=== PATIENT | male | born 1940 | race Hispanic/Latino ===

== ENCOUNTER 2019-07-05 19:05 | Emergency (ER) | payer OTHER ==
[2019-07-05] MEDS ORDERED: NA CHLORIDE 0.9% 1,000 ML ONE (19:36)
[2019-07-05] MEDS ORDERED: ONDANSETRON 4 MG/2 ML VIAL ONE (19:36)
[2019-07-05] MEDS ORDERED: NA CHLORIDE 0.9% 2,000 ML ONE (19:48)
[2019-07-05 20:08] LABS: Absolute Lymphocytes (CBC) 2.6 K/uL (0.7-4.9); Basophils % 0.3 % (0-1.3); Hematocrit 48.6 % (39.6-49.0); Lymphocytes % 17.7 % (15.3-44.8); MPV 11.4 fL (7.6-11.3); RBC Red Blood Cell Count 5.06 M/uL (4.33-5.43)
[2019-07-05 20:17] LABS: Protime INR 1.17
[2019-07-05 20:30] LABS: Albumin 4.4 g/dL (3.4-5.0); Potassium 4.4 mmol/L (3.5-5.1); Protein, Total 9.4 g/dL (6.4-8.2); Troponin (Emerg Dept Use Only) 0.06 ng/mL (0.0-0.045)
[2019-07-05 20:50] LABS: Platelet Estimate ADEQ; Platelets, Giant FEW PRESENT; Urine White Blood Cell Casts OK
[2019-07-05 20:51] LABS: Blood Morphology Comment NOT SEEN (NOT SEEN)
--- NOTE | 2019-07-05 23:33 | EDPHYS ---
Physician Documentation [facility] Name: Timmy Clark Age: 79 yrs Sex: Male : 1940 Arrival Date: 07/05/2019 Time: 19:09 Bed 26 Private MD: ED Physician Karan Lara HPI: 07/05 19:41 This 79 yrs old Male presents to ER via Wheelchair with complaints of ps1 Nausea/Vomiting/Diarrhea, Ear Pain. 19:41 patient presents somnolent, listless, from triage. Family member states that his ps1 symptoms started today after working outside with lawnmower. States that he had multiple episodes of N,V,D. He was hypotensive in triage. 70/30. HR 100. BS 190. Hx of CHF, HTN. HLD. Patient states that he has non-specific pain in chest, abdomen, head. Does not localize in any area however. . Historical: - Allergies: 19:40 No Known Allergies; ca1 - Home Meds: 19:40 lisinopril 10 mg Oral tab 1 tab once daily [Active]; aspirin 81 mg Oral chew 1 tab once ca1 daily [Active]; atorvastatin 80 mg oral tab 1 tab once daily [Active]; carvedilol 6.25 mg oral tab 1 tab 2 times per day [Active]; - PMHx: 19:40 Hypertension; Hyperlipidemia; ca1 - PSHx: 19:40 Unable to obtain; ca1 - Immunization history:: Adult Immunizations unknown. - Social history:: Smoking status: unknown. - Ebola Screening: : No symptoms or risks identified at this time. ROS: 19:41 Unable to obtain ROS due to altered mental status, patient is able to answer specific ps1 single answer questions but not able to elaborate to provide adequate ROS and history. . Exam: 19:41 Head/Face: Normocephalic, atraumatic. Eyes: Pupils equal round and reactive to light, ps1 extra-ocular motions intact. Lids and lashes normal. Conjunctiva and sclera are non-icteric and not injected. ENT: Nares patent. No nasal discharge, no septal abnormalities noted. Tympanic membranes are normal and external auditory canals are clear. Oropharynx with no redness, swelling, or masses, exudates, or evidence of obstruction, uvula midline. Mucous membranes moist. Respiratory: Lungs have equal breath sounds bilaterally, clear to auscultation and percussion. No rales, rhonchi or wheezes noted. No increased work of breathing, no retractions or nasal flaring. Back: No spinal tenderness. No costovertebral tenderness. Full range of motion. Skin: Warm, dry with normal turgor. Normal color with no rashes, no lesions, and no evidence of cellulitis. 19:41 Constitutional: The patient appears alert, listless, obviously ill. 19:41 Cardiovascular: Rate: tachycardic, Rhythm: regular, Pulses: no pulse deficits are appreciated, Edema: is not appreciated, JVD: is not appreciated. 19:41 Respiratory: 19:41 Abdomen/GI: Inspection: abdomen appears normal, Bowel sounds: normal, Palpation: organomegaly is appreciated, hepatomegaly. 19:41 Neuro: Orientation: unable to test, listless, Cerebellar function: is grossly normal, Motor: is normal, Sensation: is normal. Vital Signs: 19:40 BP 74 / 49; Pulse 80; Resp 16 S; Temp 96.1(TE); Pulse Ox 98% on R/A; Weight 108.86 kg ca1 (R); Height 5 ft. 3 in. (160.02 cm) (R); Pain 10/10; 20:00 BP 56 / 47; Pulse 64; Resp 19; Pulse Ox 100% on R/A; rv 20:15 BP 60 / 44; Pulse 64; Resp 13; Pulse Ox 99% on R/A; rv 20:30 BP 79 / 48; Pulse 63; Resp 16; Pulse Ox 99% on R/A; rv 20:45 BP 95 / 54; Pulse 66; Resp 17 S; Pulse Ox 100% on R/A; ca1 21:29 BP 90 / 56; Pulse 74; Resp 20 S; Pulse Ox 98% on R/A; ca1 22:00 BP 89 / 54; Pulse 74; Resp 17; Pulse Ox 97% on R/A; rv 22:30 BP 85 / 54; Pulse 74; Resp 17; Pulse Ox 99% on R/A; rv 23:00 BP 89 / 61; Pulse 75; Resp 18; Pulse Ox 97% on R/A; rv 23:30 BP 97 / 56; Pulse 77; Resp 14; Pulse Ox 98% on R/A; rv 10/04 00:00 BP 97 / 61; Pulse 78; Resp 15; Pulse Ox 98% on R/A; rv 00:30 BP 99 / 58; Pulse 78; Resp 16; Pulse Ox 99% on R/A; rv 01:00 BP 106 / 61; Pulse 82; Resp 15; Pulse Ox 99% on R/A; rv 01:30 BP 87 / 66; Pulse 100; Resp 16; Pulse Ox 99% on R/A; rv 02:14 BP 91 / 49; Pulse 89; Resp 16; Pulse Ox 96% on R/A; rv 03:09 BP 100 / 61; Pulse 92; Resp 20; Pulse Ox 96% on R/A; fc 07/05 19:40 Body Mass Index 42.51 (108.86 kg, 160.02 cm) ca1 MDM: 07/05 19:54 Patient medically screened. ps1 07/05 19:41 Order name: Blood Culture Adult (2) ps1 07/05 19:41 Order name: CBC with Diff; Complete Time: 21:30 ps1 07/05 19:41 Order name: Lactate; Complete Time: 20:48 ps1 07/05 19:41 Order name: Procalcitonin; Complete Time: 21:30 ps1 07/05 19:41 Order name: Protime (+inr); Complete Time: 20:48 ps1 07/05 19:41 Order name: Troponin (emerg Dept Use Only); Complete Time: 20:48 ps1 07/05 19:41 Order name: CMP; Complete Time: 20:48 ps1 07/05 19:47 Order name: AMMONIA; Complete Time: 20:48 07/05 20:50 Order name: CBC Smear Scan; Complete Time: 21:30 EDMS 07/05 23:21 Order name: CK; Complete Time: 01:25 ps1 07/06 00:05 Order name: Lactate Sepsis 2 HR Follow-up; Complete Time: 01:25 EDMS 07/05 19:41 Order name: Chest Single View XRAY ps1 07/05 19:41 Order name: Accucheck; Complete Time: 20:13 ps1 07/05 19:41 Order name: Cardiac monitoring; Complete Time: 20:13 ps1 07/05 19:41 Order name: EKG - Nurse/Tech; Complete Time: 20:38 ps1 07/05 19:41 Order name: IV Saline Lock - Large Bore; Complete Time: 20:13 ps1 07/05 19:41 Order name: Labs collected and sent; Complete Time: 20:13 ps1 07/05 20:52 Order name: Abdomen EDMS 07/06 01:50 Order name: Urinalysis W/Microscopic; Complete Time: 02:39 EDMS 07/06 02:31 Order name: Urine Culture EDHI 07/05 19:41 Order name: O2 Per Protocol; Complete Time: 20:13 ps1 07/05 19:41 Order name: O2 Sat Monitoring; Complete Time: 20:13 ps1 07/05 19:41 Order name: Urine Dipstick-Ancillary (obtain specimen); Complete Time: 02:51 ps1 Administered Medications: 19:45 Drug: NS 0.9% (30 ml/kg) 30 ml/kg Route: IV; Rate: bolus; Site: right antecubital; ca1 07/06 02:16 Follow up: IV Status: Completed infusion; IV Intake: 3000ml rv 01:30 Drug: NS 0.9% 1000 ml Route: IV; Rate: 1 bolus; Site: right antecubital; rv 02:55 Follow up: Response: No adverse reaction; No change in condition; IV Status: Completed fc infusion; IV Intake: 1000ml 02:00 Drug: Zofran 2 mg Route: IVP; Site: right antecubital; rv 03:11 Follow up: Response: No adverse reaction; Nausea is decreased fc 02:52 CANCELLED (Physician Discretion): Rocephin - (cefTRIAXone) 1 grams IVPB once over 30 fc mins; (mix in 50 mL NS) 02:55 Drug: Rocephin 1 grams Route: IV; Rate: bolus; Site: right antecubital; fc 03:10 Follow up: Response: No adverse reaction; Medication administered at discharge.; IV fc Status: Completed infusion; IV Intake: 10ml 03:09 Drug: NS 0.9% 1000 ml Route: IV; Rate: 150 ml/hr; Site: right antecubital; fc 03:11 Follow up: IV Status: Infusion continued upon transfer; IV Intake: 15ml fc 03:12 Follow up: Response: No adverse reaction; Medication administered at discharge. fc Disposition: 07/05/19 23:32 Transfer ordered to [facility]. Diagnosis are Acute renal failure, Dehydration, Lactic acidosis, hypotension. - Reason for transfer: Higher level of care. - Accepting physician is Vito. - Condition is Fair. - Problem is new. - Symptoms are unchanged. Signatures: Dispatcher [employer] EDSobia Olivares, RN RN fc Karan Lara MD MD ps1 Ra Thomas, RN RN rv Mandi Ball RN RN ca1 Corrections: (The following items were deleted from the chart) 07/05 20:52 19:53 Abdomen Pelvis W Con+CT.RAD.BRZ ordered. EDMS EDMS 23:51 23:21 LACTATE+C.LAB.BRZ ordered. EDMS EDMS 07/06 01:49 01:38 URINALYSIS+U.LAB.BRZ ordered. EDMS EDMS 01:50 07/05 19:41 UA MICROSCOPIC+U.LAB.BRZ ordered. EDMS EDMS 07/06 02:52 02:39 Rocephin - (cefTRIAXone) 1 grams IVPB once over 30 mins; (mix in 50 mL NS) fc ordered. ps1 03:13 07/05 23:32 07/05/2019 23:32 Transfer ordered to [facility]. Diagnosis is Acute renal failure; Dehydration; Lactic acidosis; hypotension. Reason for transfer: Higher level of care. Accepting physician is Vito. Condition is Fair. Problem is new. Symptoms are unchanged. ps1
--- NOTE | 2019-07-05 23:33 | ER ---
Nurse's Notes [facility] Name: Timmy Clark Age: 79 yrs Sex: Male : 1940 Arrival Date: 07/05/2019 Time: 19:09 Bed 26 Private MD: Diagnosis: Acute renal failure;Dehydration;Lactic acidosis;hypotension Presentation: 07/05 19:37 Presenting complaint: daughter states pt has had vomiting and diarrhea all day states ca1 he is hurting all over and is weak. Transition of care: patient was not received from another setting of care. Onset of symptoms was July 05, 2019. Risk Assessment: Do you want to hurt yourself or someone else? Patient reports no desire to harm self or others. Initial Sepsis Screen: Does the patient meet any 2 criteria? Systolic BP < 90 mmHg. Altered Mental Status. Does the patient have a suspected source of infection? Yes: Acute abdominal pain If YES to both, name of provider notified: Karan Lara MD. Care prior to arrival: None. 19:37 Method Of Arrival: Wheelchair ca1 19:37 Acuity: RAUL 1 ca1 Triage Assessment: 20:30 General: Appears ill, Behavior is drowsy, quiet. rv 20:30 Pain: Denies pain. EENT: No signs and/or symptoms were reported regarding the EENT rv system. Neuro: Level of Consciousness is lethargic, Oriented to person, place, time, situation. Cardiovascular: Patient's skin is warm and dry. Respiratory: Airway is patent. GI: Reports diarrhea, nausea, vomiting. : No signs and/or symptoms were reported regarding the genitourinary system. Derm: Skin is intact. Musculoskeletal: Parent/caregiver report the patient having weakness in GENERAL. Historical: - Allergies: 19:40 No Known Allergies; ca1 - Home Meds: 19:40 lisinopril 10 mg Oral tab 1 tab once daily [Active]; aspirin 81 mg Oral chew 1 tab once ca1 daily [Active]; atorvastatin 80 mg oral tab 1 tab once daily [Active]; carvedilol 6.25 mg oral tab 1 tab 2 times per day [Active]; - PMHx: 19:40 Hypertension; Hyperlipidemia; ca1 - PSHx: 19:40 Unable to obtain; ca1 - Immunization history:: Adult Immunizations unknown. - Social history:: Smoking status: unknown. - Ebola Screening: : No symptoms or risks identified at this time. Screenin:45 Abuse screen: Denies threats or abuse. Denies injuries from another. Nutritional ca1 screening: No deficits noted. Tuberculosis screening: No symptoms or risk factors identified. Fall Risk IV access (20 points). Assessment: 20:30 General: Appears ill, Behavior is drowsy. rv 20:30 Pain: Denies pain. Neuro: Level of Consciousness is lethargic, Oriented to person, rv place, time, situation. Cardiovascular: Patient's skin is warm and dry. Respiratory: Airway is patent. GI: Reports diarrhea, nausea, vomiting. GI: Abdomen is round distended. : No signs and/or symptoms were reported regarding the genitourinary system. EENT: No signs and/or symptoms were reported regarding the EENT system. Derm: Skin is intact. Musculoskeletal: Reports weakness in GENERAL. 07/06 00:00 Reassessment: Patient appears in no apparent distress at this time. Patient and/or rv family updated on plan of care and expected duration. Pain level reassessed. Patient is alert, oriented x 3, equal unlabored respirations, skin warm/dry/pink. PATIENT HAD BOWEL MOVEMENT OF LOOSE STOOL. DIAPER CHANGING DONE. 01:00 Reassessment: PATIENT APPEARS TO BE MORE STABLE NOW. ABLE TO TALK AND MORE ALERT THAN rv EARLIER ASSESSMENT. ADVISED TO BE ON STRICT BED REST FOR NOW. 02:17 Reassessment: PATIENT WAS ADMINISTERED THREE LITERS OF NS INTRAVENOUSLY. DR LARA rv UPDATED ON THE VITAL SIGNS. POSITIONED OT [place], AND KEPT ON COMPLETE BED REST. BLOOD PRESSURE RECOVERED AFTER HYDRATION. PATIENT AND FAMILY UPDATED ON THE STATUS AND PLAN OF CARE. THE DAUGHTER INITIALLY WAS RELUCTANT TO GET TRANSFERRED. DR LARA AND GLENNY TALKED TO THE PATIENT AND FAMILY AT BEDSIDE, FAMILY AND PATIENT AGREED WITH THE PLAN. AWAITING TRANSPORTATION TO [facility]. 03:09 Reassessment: EMS here to take pt. Pt incont of liquid stool. Was cleaned and dry fc diaper put on pt. Dr Lara gave report to EMS. Vital Signs: 07/05 19:40 BP 74 / 49; Pulse 80; Resp 16 S; Temp 96.1(TE); Pulse Ox 98% on R/A; Weight 108.86 kg ca1 (R); Height 5 ft. 3 in. (160.02 cm) (R); Pain 10/10; 20:00 BP 56 / 47; Pulse 64; Resp 19; Pulse Ox 100% on R/A; rv 20:15 BP 60 / 44; Pulse 64; Resp 13; Pulse Ox 99% on R/A; rv 20:30 BP 79 / 48; Pulse 63; Resp 16; Pulse Ox 99% on R/A; rv 20:45 BP 95 / 54; Pulse 66; Resp 17 S; Pulse Ox 100% on R/A; ca1 21:29 BP 90 / 56; Pulse 74; Resp 20 S; Pulse Ox 98% on R/A; ca1 22:00 BP 89 / 54; Pulse 74; Resp 17; Pulse Ox 97% on R/A; rv 22:30 BP 85 / 54; Pulse 74; Resp 17; Pulse Ox 99% on R/A; rv 23:00 BP 89 / 61; Pulse 75; Resp 18; Pulse Ox 97% on R/A; rv 23:30 BP 97 / 56; Pulse 77; Resp 14; Pulse Ox 98% on R/A; rv 04 00:00 BP 97 / 61; Pulse 78; Resp 15; Pulse Ox 98% on R/A; rv 00:30 BP 99 / 58; Pulse 78; Resp 16; Pulse Ox 99% on R/A; rv 01:00 BP 106 / 61; Pulse 82; Resp 15; Pulse Ox 99% on R/A; rv 01:30 BP 87 / 66; Pulse 100; Resp 16; Pulse Ox 99% on R/A; rv 02:14 BP 91 / 49; Pulse 89; Resp 16; Pulse Ox 96% on R/A; rv 03:09 BP 100 / 61; Pulse 92; Resp 20; Pulse Ox 96% on R/A; fc 07/05 19:40 Body Mass Index 42.51 (108.86 kg, 160.02 cm) ca1 ED Course: 07/05 19:09 Patient arrived in ED. cf2 19:34 Ra Thomas RN is Primary Nurse. rv 19:34 Karan Lara MD is Attending Physician. ps1 19:38 Triage completed. ca1 19:40 Arm band placed on Patient placed in a hallway bed, on a stretcher, on media monitor, ca1 on pulse oximetry. Family accompanied patient. 19:45 Patient has correct armband on for positive identification. Placed in gown. Bed in low ca1 position. Call light in reach. Side rails up X2. radiation monitor on. Pulse ox on. NIBP on. Warm blanket given. 19:45 No provider procedures requiring assistance completed. Initial lab(s) drawn, by me, ca1 sent to lab. First set of blood cultures drawn by me. Inserted saline lock: 22 gauge in right antecubital area, using aseptic technique. Blood collected. 20:00 Straight cath inserted, using sterile technique, 16 Fr. Returned no urine return. jp3 resistence was met at prostate. Silverio was removed and sterile technique started over for a smaller silverio size.. Patient tolerated well. 20:05 Silverio cath inserted, using sterile technique, 14 Fr., by me, balloon inflated, to ca1 gravity drainage, returned none. Notified provider. Patient tolerated well. 20:10 Inserted saline lock: 22 gauge in left hand, using aseptic technique. ca1 20:10 Second set of blood cultures drawn. ca1 21:12 Abdomen In Process Unspecified. EDMS 21:21 Chest Single View XRAY In Process Unspecified. EDMS 07/06 03:13 Patient transferred, IV remains in place. fc Administered Medications: 07/05 19:45 Drug: NS 0.9% (30 ml/kg) 30 ml/kg Route: IV; Rate: bolus; Site: right antecubital; ca1 07/06 02:16 Follow up: IV Status: Completed infusion; IV Intake: 3000ml rv 01:30 Drug: NS 0.9% 1000 ml Route: IV; Rate: 1 bolus; Site: right antecubital; rv 02:55 Follow up: Response: No adverse reaction; No change in condition; IV Status: Completed fc infusion; IV Intake: 1000ml 02:00 Drug: Zofran 2 mg Route: IVP; Site: right antecubital; rv 03:11 Follow up: Response: No adverse reaction; Nausea is decreased fc 02:52 CANCELLED (Physician Discretion): Rocephin - (cefTRIAXone) 1 grams IVPB once over 30 fc mins; (mix in 50 mL NS) 02:55 Drug: Rocephin 1 grams Route: IV; Rate: bolus; Site: right antecubital; fc 03:10 Follow up: Response: No adverse reaction; Medication administered at discharge.; IV fc Status: Completed infusion; IV Intake: 10ml 03:09 Drug: NS 0.9% 1000 ml Route: IV; Rate: 150 ml/hr; Site: right antecubital; fc 03:11 Follow up: IV Status: Infusion continued upon transfer; IV Intake: 15ml fc 03:12 Follow up: Response: No adverse reaction; Medication administered at discharge. fc Intake: 02:16 IV: 3000ml; Total: 3000ml. rv 02:55 IV: 1000ml; Total: 4000ml. fc 03:10 IV: 10ml; Total: 4010ml. fc 03:11 IV: 15ml; Total: 4025ml. fc Outcome: 07/05 23:32 ER care complete, transfer ordered by . [facility] 07/06 03:12 Transferred by [facility] to [facility], Transfer form completed. fc X-rays sent w/ patient. Condition: stable Discharge instructions given to patient, family, Instructed on the need for transfer, Demonstrated understanding of instructions. 03:13 Patient left the ED. fc Addendum: 07/11/2019 12:35 Addendum: Culture Results: Positive urine culture. Phone call Attempt #1 Called [facility] who reported that patient had been discharged home. Signatures: Dispatcher [employer] EDMS Sobia Hunter RN RN Danuta Bacon RN RN ss Singer, Phillip, MD MD ps1 Ra Thomas RN RN rv Jesús Eric jp3 Mandi Ball RN RN ca1 Vaughn Kenny cf2 Corrections: (The following items were deleted from the chart) 07/05 19:42 19:37 Acuity: RAUL 2 ca1 ca1 21:48 20:45 BP 95 / 54; Pulse 66bpm; Resp 17bpm; Pulse Ox 100% RA; ca1 ca1 21:48 21:29 BP 90 / 56; Pulse 74bpm; Resp 20bpm; Pulse Ox 98% RA; ca1 ca1
[2019-07-06] MEDS ORDERED: NA CHLORIDE 0.9% 1,000 ML ONE ×2 (01:30→03:02)
[2019-07-06] MEDS ORDERED: ONDANSETRON 4 MG/2 ML VIAL ONE (01:54)
[2019-07-06 02:02] LABS: Urine Appearance TURBID; Urine Blood 3+ (NEG); Urine Color RED; Urine Glucose TRACE (NEG); Urine Protein 3+ (NEG); Urine Specific Gravity 1.025 (1.005-1.030)
[2019-07-06 02:17] LABS: Urine Bilirubin NEGATIVE (NEG)
[2019-07-06 02:30] LABS: Urine Bacteria >50 /HPF (NONE SEEN); Urine Culture Reflex Order REFLEXED; Urine RBC TNTC /HPF (NONE SEEN)
[2019-07-06] MEDS ORDERED: CEFTRIAXONE/SWI 1gm 1 GM/10 ML SYR ONE (02:51)
[2019-07-06 03:22] VITALS: TEMP 96.1
[2019-07-06 03:40] VITALS: O2SAT 96
[2019-07-06 03:41] VITALS: BP 100/61
--- NOTE | 2019-07-07 04:44 | EKG ---
Test Date: 2019-07-05 Test Time: 20:40:42 Caddie Supervisor: RV MEASUREMENT RESULTS: Intervals: Rate: 63 WI: 124 QRSD: 82 QT: 448 QTc: 458 [place]: P: 40 WI: 124 QRS: 16 T: 37 INTERPRETIVE STATEMENTS: Normal sinus rhythm Inferior infarct, age undetermined Abnormal ECG No previous ECG available for comparison Electronically Signed On 07-07-19 04:44:34 CDT by Luke Chavez
--- NOTE | 2019-07-07 15:06 | RAD REPORT ---
EXAM DESCRIPTION: Emelyn Single View07/06/2019 7:04 pm CLINICAL HISTORY: Sepsis and hypertension COMPARISON: 2011 FINDINGS: The lungs appear clear of acute infiltrate. The heart is normal size IMPRESSION: No acute abnormalities displayed
--- NOTE | 2019-07-09 15:08 | RAD REPORT ---
EXAM DESCRIPTION: CT ABDOMEN AND PELVIS W/O CONTRAST CLINICAL HISTORY: Abdominal pain. COMPARISON: None. TECHNIQUE: Axial 5 mm thick images of the abdomen and pelvis were obtained without oral or IV contrast. This exam was performed according to our departmental dose-optimization program, which includes automated exposure control, adjustment of the mA and/or kV according to patient size and/or use of iterative reconstruction technique. FINDINGS: No acute finding in the lung bases. The liver, spleen, pancreas, biliary tree, adrenal glands and kidneys show no suspicious findings. The gallbladder is absent. No hydronephrosis of either kidney. Isodense masses and pyelonephritis are not excluded on non-contrast imaging. The urinary bladder is fully contracted around a Painter catheter. No dilated bowel loops or bowel wall thickening. No free air, free fluid or inflammatory stranding. No mass or bulky lymphadenopathy. Bilateral fat only inguinal hernias are present. Spine degenerative changes are present. No acute bone process is seen. IMPRESSION: 1. Non-contrast Ct abdomen and pelvis imaging showing no emergent finding. A non-specific enteritis is still possible. 2. Isodense masses and pyelonephritis are not excluded on a non-contrast study. Non acute findings detailed in the body of the report. Due to [email or web address] technical issues signed final reports were delayed. Verbal reports were telephoned to the referring clinician at the time of the study and/or preliminary written reports were generated as soon as possible.
== END 2019-07-06 03:13 | disposition short-term general hospital (02) ==
LOC: ER 19:05
DX: N17.9 Acute kidney failure, unspecified (principal); E86.0 Dehydration; E87.2 Acidosis; I95.9 Hypotension, unspecified; I10 Essential (primary) hypertension; E78.5 Hyperlipidemia, unspecified; Z79.82 Long term (current) use of aspirin
CPT/HCPCS: 96361 ×2; 93005; 87040 ×2; 87088; 85025; 81001; 87086; 36415; 82140; 82550; 85610; 82962; 83605 ×2; 87077; 87186; 84484; 80053; 84145; 74176; 71045; 51702 ×2; 96375; 96374; 99291; 99292; J0696; J7030 ×4; J2405 ×2; 96365; 96366

== ENCOUNTER 2022-03-29 21:40 | Emergency (ER) | payer OTHER ==
--- OUTSIDE RECORDS SUMMARY | 2022-03-29 21:46 | XMS REPORT | Continuity of Care Document ---
:1940 Author Organization [facility] t Address [address] [place] [address] Dr. Marino [address] [place] [id number] Care Team Providers Name Role Phone SIMA AMBROSE Attending Clinician Unavailable SIMA AMBROSE Admitting Clinician Unavailable Problems This patient has no known problems. Allergies, Adverse Reactions, Alerts This patient has no known allergies or adverse reactions. Medications This patient has no known medications. Procedures This patient has no known procedures. Results Test Description Test Time Test Comments Results Result Comments Source IMMUNOFIXATION ELECTROPHORESIS (VAL) 2019-07-13 15:55:00 Test Item Value Reference Range Interpretation Comme nts IMMUNOGLOBULIN G (IGG) (BEAKER) (test 1368 mg/dL 540-1,822 code = 427) IMMUNOGLOBULIN A (IGA) (BEAKER) (test 85 mg/dL 63-484 code = 639) IMMUNOGLOBULIN M (IGM) (BEAKER) (test 41 mg/dL 22-293 code = 638) SERUM VAL ID (BEAKER) (test code = Serum VAL demonstrates two 1814) distinct IgG kappa monoclonal bands. [id number] (BEAKER) (test Margie Nicholson MD (electronic code = 2597) signature) PROTEIN ELECTROPHORESIS, [id number] 17:30:00 Test Item Value Reference Range Interpretation Comments ALBUMIN FRACTION 2.7 g/dL 3.5-5.5 L (BEAKER) (test code = 405) ALPHA 1 FRACTION 0.2 g/dL 0.2-0.4 (BEAKER) (test code = 389) ALPHA 2 FRACTION 0.6 g/dL 0.5-0.9 (BEAKER) (test code = 390) BETA FRACTION 0.5 g/dL 0.6-1.1 L (BEAKER) (test code = 392) GAMMA GLOBULIN 1.2 g/dL 0.7-1.7 FRACTION (BEAKER) (test code = 391) INTERPRETATION-119 There are 2 bands of (BEAKER) (test code = uncertain significance 2618) in the gamma region. Refer to VAL. [id number] [place] MD (BEAKER) (test code = (electronic signature) 2618) PROTEIN TOTAL SERUM, 5.1 gm/dL 6.0-8.3 L SPEP (BEAKER) (test code = 2230) OVA AND PARASITE [id number] 11:33:00 Test Item Value Reference Range Interpretation Comments DIRECT SMEAR - O\T\P No ova or parasites No ova or parasites (BEAKER) (test code = seen seen 196) CONCENTRATE SMEAR - No ova or parasites No ova or parasites O\T\P (BEAKER) (test seen seen code = 247) TRICHROME SMEAR - No ova or parasites No ova or parasites O\T\P (BEAKER) (test seen seen code = 248) BLOOD [id number] 08:00:00 Test Item Value Reference Range Interpretation Comments CULTURE (BEAKER) (test No growth in 5 days code = 1095) BLOOD [id number] 08:00:00 Test Item Value Reference Range Interpretation Comments CULTURE (BEAKER) (test No growth in 5 days code = 1095) BASIC METABOLIC [id number] 16:30:00 Test Item Value Reference Range Interpretation Comments SODIUM (BEAKER) 140 meq/L 136-145 (test code = 381) POTASSIUM (BEAKER) 3.9 meq/L 3.5-5.1 (test code = 379) CHLORIDE (BEAKER) 109 meq/L 98-107 H (test code = 382) CO2 (BEAKER) (test 28 meq/L 22-29 code = 355) BLOOD UREA NITROGEN 25 mg/dL 7-21 H (BEAKER) (test code = 354) CREATININE (BEAKER) 1.17 mg/dL 0.57-1.25 (test code = 358) GLUCOSE RANDOM 109 mg/dL 70-105 H (BEAKER) (test code = 652) CALCIUM (BEAKER) 8.3 mg/dL 8.4-10.2 L (test code = 697) EGFR (BEAKER) (test 60 mL/min/1.73 ESTIMA LUIS GFR IS code = 1092) sq m NOT ACCURATE CREATININE CLEARANCE IN PREDICTING GLOMERULAR FILTRATION RATE . ESTIMATED GFR I S NOT APPLICABLE FOR DIALYSIS PATIEN TS. IRON, TIBC, % SAT. (WITHOUT FERRITIN)2019-07-08 06:42:00 Test Item Value Reference Range Interpretation Comments IRON (BEAKER) (test code = 547) 64.0 ug/dL 40.0-160.0 TOTAL IRON BINDING CAPACITY 175 ug/dL 250-450 L (BEAKER) (test code = 769) IRON % SATURATION (2) (BEAKER) 37 % 20-55 (test code = 2590) [id number] 06:36:00 Test Item Value Reference Range Interpretation Comments PHOSPHORUS (BEAKER) (test code = 2.0 mg/dL 2.3-4.7 L 604) [id number] 06:36:00 Test Item Value Reference Range Interpretation Comments MAGNESIUM (BEAKER) (test code = 1.9 mg/dL 1.6-2.6 627) BASIC METABOLIC [id number] 06:36:00 Test Item Value Reference Range Interpretation Comments SODIUM (BEAKER) 143 meq/L 136-145 (test code = 381) POTASSIUM (BEAKER) 3.6 meq/L 3.5-5.1 (test code = 379) CHLORIDE (BEAKER) 111 meq/L 98-107 H (test code = 382) CO2 (BEAKER) (test 27 meq/L 22-29 code = 355) BLOOD UREA NITROGEN 33 mg/dL 7-21 H (BEAKER) (test code = 354) CREATININE (BEAKER) 1.40 mg/dL 0.57-1.25 H (test code = 358) GLUCOSE RANDOM 104 mg/dL 70-105 (BEAKER) (test code = 652) CALCIUM (BEAKER) 8.4 mg/dL 8.4-10.2 (test code = 697) EGFR (BEAKER) (test 49 mL/min/1.73 ESTIMA LUIS GFR IS code = 1092) sq m NOT ACCURATE CREATININE CLEARANCE IN PREDICTING GLOMERULAR FILTRATION RATE . ESTIMATED GFR I S NOT APPLICABLE FOR DIALYSIS PATIEN TS. CREATINE KINASE (CK)2019-07-08 06:36:00 Test Item Value Reference Range Interpretation Comments CREATINE KINASE TOTAL (BEAKER) (test 264 U/L 29-200 H code = 380) [id number] 06:33:00 Test Item Value Reference Range Interpretation Comments FERRITIN (BEAKER) (test code = 361) 167 ng/mL 5-275 CBC W/PLT COUNT & AUTO [id number] 05:51:00 Test Item Value Reference Range Interpretation Comments WHITE BLOOD CELL COUNT (BEAKER) 6.2 K/ L 3.5-10.5 (test code = 775) RED BLOOD CELL COUNT (BEAKER) 3.54 M/ L 4.63-6.08 L (test code = 761) HEMOGLOBIN (BEAKER) (test code = 11.2 GM/DL 13.7-17.5 L 410) HEMATOCRIT (BEAKER) (test code = 34.0 % 40.1-51.0 L 411) MEAN CORPUSCULAR VOLUME (BEAKER) 96.0 fL 79.0-92.2 H (test code = 753) MEAN CORPUSCULAR HEMOGLOBIN 31.6 pg 25.7-32.2 (BEAKER) (test code = 751) MEAN CORPUSCULAR HEMOGLOBIN CONC 32.9 GM/DL 32.3-36.5 (BEAKER) (test code = 752) RED CELL DISTRIBUTION WIDTH 14.5 % 11.6-14.4 H (BEAKER) (test code = 412) PLATELET COUNT (BEAKER) (test code 91 K/CU MM 150-450 L = 756) MEAN PLATELET VOLUME (BEAKER) 12.9 fL 9.4-12.4 H (test code = 754) NUCLEATED RED BLOOD CELLS (BEAKER) 0 /100 WBC 0-0 (test code = 413) NEUTROPHILS RELATIVE PERCENT 61 % (BEAKER) (test code = 429) LYMPHOCYTES RELATIVE PERCENT 24 % (BEAKER) (test code = 430) MONOCYTES RELATIVE PERCENT 11 % (BEAKER) (test code = 431) EOSINOPHILS RELATIVE PERCENT 3 % (BEAKER) (test code = 432) BASOPHILS RELATIVE PERCENT 0 % (BEAKER) (test code = 437) NEUTROPHILS ABSOLUTE COUNT 3.79 K/ L 1.78-5.38 (BEAKER) (test code = 670) LYMPHOCYTES ABSOLUTE COUNT 1.49 K/ L 1.32-3.57 (BEAKER) (test code = 414) MONOCYTES ABSOLUTE COUNT (BEAKER) 0.66 K/ L 0.30-0.82 (test code = 415) EOSINOPHILS ABSOLUTE COUNT 0.21 K/ L 0.04-0.54 (BEAKER) (test code = 416) BASOPHILS ABSOLUTE COUNT (BEAKER) 0.02 K/ L 0.01-0.08 (test code = 417) IMMATURE GRANULOCYTES-RELATIVE 0 % 0-1 PERCENT (BEAKER) (test code = 2801) BASIC METABOLIC [id number] 17:58:00 Test Item Value Reference Range Interpretation Comments SODIUM (BEAKER) 145 meq/L 136-145 (test code = 381) POTASSIUM (BEAKER) 3.7 meq/L 3.5-5.1 (test code = 379) CHLORIDE (BEAKER) 111 meq/L 98-107 H (test code = 382) CO2 (BEAKER) (test 27 meq/L 22-29 code = 355) BLOOD UREA NITROGEN 43 mg/dL 7-21 H (BEAKER) (test code = 354) CREATININE (BEAKER) 2.19 mg/dL 0.57-1.25 H (test code = 358) GLUCOSE RANDOM 101 mg/dL 70-105 (BEAKER) (test code = 652) CALCIUM (BEAKER) 8.4 mg/dL 8.4-10.2 (test code = 697) EGFR (BEAKER) (test 29 mL/min/1.73 ESTIMA LUIS GFR IS code = 1092) sq m NOT ACCURATE CREATININE CLEARANCE IN PREDICTING GLOMERULAR FILTRATION RATE . ESTIMATED GFR I S NOT APPLICABLE FOR DIALYSIS PATIEN TS. VITAMIN B12 AND [id number] 08:30:00 Test Item Value Reference Range Interpretation Comments VITAMIN B12 (BEAKER) (test code = 198 pg/mL 213-816 L 774) FOLATE (BEAKER) (test code = 362) 7.1 ng/mL >=7.0 TROPONIN [id number] 08:13:00 Test Item Value Reference Range Interpretation Comments TROPONIN I (BEAKER) (test code = 0.22 ng/mL 0.00-0.03 HH 397) Troponin I (TnI) levels must be interpreted in the context of the presenting symptoms and the clinical findings. Elevated TnI levels indicate myocardial damage, but are not specific for ischemic heart disease. Elevated TnI levels are seen in patients with other cardiac conditions (including myocarditis and congestive heart failure), and slight TnI elevations occur in patients with other conditions, including sepsis, renal failure, acidosis, acute neurological disease, and persistent tachyarrhythmia.HEPATITIS B SURFACE [id number] 06:54:00 Test Item Value Reference Range Interpretation Comments HEPATITIS B SURFACE ANTIBODY < mIU/mL <8.0 (BEAKER) (test code = 647) HEPATITIS PANEL, [id number] 06:50:00 Test Item Value Reference Range Interpretation Comments HEPATITIS A IGM ANTIBODY (BEAKER) Nonreactive Nonreactive (test code = 498) HEPATITIS B CORE IGM ANTIBODY Nonreactive Nonreactive (BEAKER) (test code = 645) HEPATITIS C ANTIBODY (BEAKER) Nonreactive Nonreactive (test code = 367) HEPATITIS B SURFACE ANTIGEN (2) Nonreactive Nonreactive (BEAKER) (test code = 2585) VITAMIN D, [id number] 06:50:00 Test Item Value Reference Range Interpretation Comments VITAMIN D 25-OH (BEAKER) (test 11.9 ng/mL 6.6-49.9 code = 2764) Effective 07/13/2017: Reference Range ChangeNew: 6.6-49.9 ng/mL Previous: 13.0-47.8 ng/mLRecommended Vitamin D Target Range: 30.0-40.0 ng/mLHIV-1 ANTIGEN WITH HIV-1/2 [id number] 06:50:00 Test Item Value Reference Range Interpretation Comments HIV-1 ANTIGEN WITH HIV 1\T\2 Nonreactive Nonreactive ANTIBODY (2) (BEAKER) (test code = 2586) BASIC METABOLIC [id number] 03:53:00 Test Item Value Reference Range Interpretation Comments SODIUM (BEAKER) (test 146 meq/L 136-145 H code = 381) POTASSIUM (BEAKER) 3.6 meq/L 3.5-5.1 (test code = 379) CHLORIDE (BEAKER) 115 meq/L 98-107 H (test code = 382) CO2 (BEAKER) (test 25 meq/L 22-29 code = 355) BLOOD UREA NITROGEN 56 mg/dL 7-21 H (BEAKER) (test code = 354) CREATININE (BEAKER) 3.37 mg/dL 0.57-1.25 H (test code = 358) GLUCOSE RANDOM 118 mg/dL 70-105 H (BEAKER) (test code = 652) CALCIUM (BEAKER) 8.0 mg/dL 8.4-10.2 L (test code = 697) EGFR (BEAKER) (test INSUFFIC IENT CLINICAL code = 1092) DATA TO CALCULA TE ESTIMATED GFR. [id number] 03:51:00 Test Item Value Reference Range Interpretation Comments MAGNESIUM (BEAKER) (test code = 2.3 mg/dL 1.6-2.6 627) CREATINE KINASE (CK)2019-07-07 03:51:00 Test Item Value Reference Range Interpretation Comments CREATINE KINASE TOTAL (BEAKER) (test 255 U/L 29-200 H code = 380) PTH, [id number] 03:50:00 Test Item Value Reference Range Interpretation Comments PARATHYROID HORMONE INTACT 211.9 pg/mL 8.5-72.5 H (BEAKER) (test code = 577) CBC W/PLT COUNT & AUTO [id number] 03:31:00 Test Item Value Reference Range Interpretation Comments WHITE BLOOD CELL COUNT (BEAKER) 6.9 K/ L 3.5-10.5 (test code = 775) RED BLOOD CELL COUNT (BEAKER) 3.31 M/ L 4.63-6.08 L (test code = 761) HEMOGLOBIN (BEAKER) (test code = 10.4 GM/DL 13.7-17.5 L 410) HEMATOCRIT (BEAKER) (test code = 30.8 % 40.1-51.0 L 411) MEAN CORPUSCULAR VOLUME (BEAKER) 93.1 fL 79.0-92.2 H (test code = 753) MEAN CORPUSCULAR HEMOGLOBIN 31.4 pg 25.7-32.2 (BEAKER) (test code = 751) MEAN CORPUSCULAR HEMOGLOBIN CONC 33.8 GM/DL 32.3-36.5 (BEAKER) (test code = 752) RED CELL DISTRIBUTION WIDTH 14.5 % 11.6-14.4 H (BEAKER) (test code = 412) PLATELET COUNT (BEAKER) (test code 93 K/CU MM 150-450 L = 756) MEAN PLATELET VOLUME (BEAKER) 12.6 fL 9.4-12.4 H (test code = 754) NUCLEATED RED BLOOD CELLS (BEAKER) 0 /100 WBC 0-0 (test code = 413) NEUTROPHILS RELATIVE PERCENT 69 % (BEAKER) (test code = 429) LYMPHOCYTES RELATIVE PERCENT 20 % (BEAKER) (test code = 430) MONOCYTES RELATIVE PERCENT 10 % (BEAKER) (test code = 431) EOSINOPHILS RELATIVE PERCENT 1 % (BEAKER) (test code = 432) BASOPHILS RELATIVE PERCENT 0 % (BEAKER) (test code = 437) NEUTROPHILS ABSOLUTE COUNT 4.75 K/ L 1.78-5.38 (BEAKER) (test code = 670) LYMPHOCYTES ABSOLUTE COUNT 1.36 K/ L 1.32-3.57 (BEAKER) (test code = 414) MONOCYTES ABSOLUTE COUNT (BEAKER) 0.69 K/ L 0.30-0.82 (test code = 415) EOSINOPHILS ABSOLUTE COUNT 0.06 K/ L 0.04-0.54 (BEAKER) (test code = 416) BASOPHILS ABSOLUTE COUNT (BEAKER) 0.02 K/ L 0.01-0.08 (test code = 417) IMMATURE GRANULOCYTES-RELATIVE 0 % 0-1 PERCENT (BEAKER) (test code = 2801) BASIC METABOLIC [id number] 22:34:00 Test Item Value Reference Range Interpretation Comments SODIUM (BEAKER) (test 144 meq/L 136-145 code = 381) POTASSIUM (BEAKER) 3.3 meq/L 3.5-5.1 L (test code = 379) CHLORIDE (BEAKER) 115 meq/L 98-107 H (test code = 382) CO2 (BEAKER) (test 20 meq/L 22-29 L code = 355) BLOOD UREA NITROGEN 58 mg/dL 7-21 H (BEAKER) (test code = 354) CREATININE (BEAKER) 3.97 mg/dL 0.57-1.25 H (test code = 358) GLUCOSE RANDOM 127 mg/dL 70-105 H (BEAKER) (test code = 652) CALCIUM (BEAKER) 7.8 mg/dL 8.4-10.2 L (test code = 697) EGFR (BEAKER) (test INSUFFIC IENT CLINICAL code = 1092) DATA TO CALCULA TE ESTIMATED GFR. [id number] 22:33:00 Test Item Value Reference Range Interpretation Comments MAGNESIUM (BEAKER) (test code = 1.7 mg/dL 1.6-2.6 627) C. DIFFICILE GDH [id number] 19:16:00 Test Item Value Reference Range Interpretation Comments CDT TOXIN (test code Negative Negative = [id number]) CDT GDH ANTIGEN (test Negative Negative No ind ication of code = [id number]) Clostridi um difficile infection and n o colonization. Discontinue ent manuel isolation and t herapy. Testing performed by [employer] Rapid Cassette Assay. For GDH, published sensitivity of the assay is 98.7% compared to cytotoxicity testing. For Toxin AB, published sensitivity is 87.8% and specificity 99.4% compared to cytotoxicity testing.Verification of kit performance was done by the [facility] prior to clinical use.TROPONIN [id number] 18:08:00 Test Item Value Reference Range Interpretation Comments TROPONIN I (BEAKER) (test code = 0.26 ng/mL 0.00-0.03 397) Troponin I (TnI) levels must be interpreted in the context of the presenting symptoms and the clinical findings. Elevated TnI levels indicate myocardial damage, but are not specific for ischemic heart disease. Elevated TnI levels are seen in patients with other cardiac conditions (including myocarditis and congestive heart failure), and slight TnI elevations occur in patients with other conditions, including sepsis, renal failure, acidosis, acute neurological disease, and persistent tachyarrhythmia.BASIC METABOLIC [id number] 17:53:00 Test Item Value Reference Range Interpretation Comments SODIUM (BEAKER) (test 147 meq/L 136-145 H code = 381) POTASSIUM (BEAKER) 3.1 meq/L 3.5-5.1 L (test code = 379) CHLORIDE (BEAKER) 113 meq/L 98-107 H (test code = 382) CO2 (BEAKER) (test 20 meq/L 22-29 L code = 355) BLOOD UREA NITROGEN 57 mg/dL 7-21 H (BEAKER) (test code = 354) CREATININE (BEAKER) 4.46 mg/dL 0.57-1.25 H (test code = 358) GLUCOSE RANDOM 113 mg/dL 70-105 H (BEAKER) (test code = 652) CALCIUM (BEAKER) 8.3 mg/dL 8.4-10.2 L (test code = 697) EGFR (BEAKER) (test INSUFFIC IENT CLINICAL code = 1092) DATA TO CALCULA TE ESTIMATED GFR. [id number] 17:52:00 Test Item Value Reference Range Interpretation Comments MAGNESIUM (BEAKER) (test code = 1.9 mg/dL 1.6-2.6 627) TROPONIN [id number] 12:25:00 Test Item Value Reference Range Interpretation Comments TROPONIN I (BEAKER) (test code = 0.25 ng/mL 0.00-0.03 HH 397) Troponin I (TnI) levels must be interpreted in the context of the presenting symptoms and the clinical findings. Elevated TnI levels indicate myocardial damage, but are not specific for ischemic heart disease. Elevated TnI levels are seen in patients with other cardiac conditions (including myocarditis and congestive heart failure), and slight TnI elevations occur in patients with other conditions, including sepsis, renal failure, acidosis, acute neurological disease, and persistent tachyarrhythmia.CREATININE, RANDOM [id number] 12:12:00 Test Item Value Reference Range Interpretation Comments CREATININE URINE (BEAKER) (test 189.1 mg/dL code = 375) Reference Range: No NormalsSODIUM, RANDOM [id number] 12:12:00 Test Item Value Reference Range Interpretation Comments SODIUM URINE (BEAKER) (test code = 48 meq/L 243) Reference Range: No NormalsURINALYSIS W/ REFLEX URINE [id number] 12:07:00 Test Item Value Reference Range Interpretation Comments COLOR (BEAKER) (test code = 470) Yellow CLARITY (BEAKER) (test code = 469) Hazy SPECIFIC GRAVITY UA (BEAKER) (test 1.012 1.001-1.035 code = 468) PH UA (BEAKER) (test code = 467) 5.5 5.0-8.0 PROTEIN UA (BEAKER) (test code = 70 mg/dL Negative A 464) GLUCOSE UA (BEAKER) (test code = Negative Negative 365) KETONES UA (BEAKER) (test code = Negative Negative 371) BILIRUBIN UA (BEAKER) (test code = Negative Negative 462) BLOOD UA (BEAKER) (test code = 461) Large Negative A NITRITE UA (BEAKER) (test code = Negative Negative 465) LEUKOCYTE ESTERASE UA (BEAKER) Large Negative A (test code = 466) UROBILINOGEN UA (BEAKER) (test code 0.2 mg/dL 0.2-1.0 = 463) RBC UA (BEAKER) (test code = 519) 185 /HPF WBC UA (BEAKER) (test code = 520) 128 /HPF MUCUS (BEAKER) (test code = 1574) Moderate HYALINE CASTS (BEAKER) (test code = 6 /LPF 514) SOURCE(BEAKER) (test code = 2795) BLOOD GAS, [id number] 12:02:00 Test Item Value Reference Range Interpretation Comments PH VENOUS (BEAKER) (test code = 7.30 7.32-7.42 L 701) PCO2 VENOUS (BEAKER) (test code 27 mmHg 41-51 L = 755) PO2 VENOUS (BEAKER) (test code = 102 mmHg 25-40 H 702) O2 SATURATION VENOUS (BEAKER) 97.2 % 40.0-70.0 H (test code = 703) HCO3 VENOUS (BEAKER) (test code 13 mmol/L 21-29 L = 705) BASE EXCESS VENOUS (BEAKER) -11.7 mmol/L -2.0-3.0 L (test code = 704) PATIENT TEMPERATURE (BEAKER) 37.0 C (test code = 1818) FIO2 (BEAKER) (test code = 1819) 100.0 % U/S, RENAL, [id number] 11:35:00Reason for exam:->akiShould this be performed at the bedside?->YesFINAL REPORT Comparison: None Discussion: Sonographic evaluation of the kidneys is performed. The right kidney measures 10.4 cm in length, with cortical thickness of 1.1 cm. Theleft kidney measures 10.2 cm in length, with cortical thickness of 1.3 cm. There is no focal renal mass, hydronephrosis, or shadowing renal calculus. Bladder collapsed around Painter catheter. Impression: Normal sonographic evaluation of the kidneys. Signed: Carlos Alberto Cortez Verified Date/Time: 07/06/2019 11:35:30 Reading Location: [address] Radiology Reading [facility] 2019[facility]07[facility] 09:10:00 Test Item Value Reference Range Interpretation Comments CORTISOL, TOTAL (BEAKER) (test 13.3 ug/dL 3.7-19.4 code = 2755) RAD, CHEST, 1 VIEW, NON [id number] 07:42:00Reason for exam:->icu admitShould this be performed at the bedside?->YesFINAL REPORT INDICATION: icu admit COMPARISON: None TECHNIQUE: Single frontalview of the chest. FINDINGS: Lungs and pleura: Underinflated but clear. No effusion.Heart and mediastinum: Normal heart size. Unremarkable mediastinal contours.Osseous structures: No acute abnormality.Other: None. IMPRESSION: No acute intrathoracic abnormality. Signed: JR Garcia Robert MDReport Verified Date/Time: 07/06/2019 07:42:05 Reading Location: [address] Neuro Reading Room POCT-GLUCOSE [id number] 06:40:00 Test Item Value Reference Range Interpretation Comments POC-GLUCOSE METER 103 mg/dL 70-[address] [facility] [address] (BEAKER) (test code = CORINA Reyes [place] 1538) [id number] [id number] 06:19:00 Test Item Value Reference Range Interpretation Comments PHOSPHORUS (BEAKER) (test code = 7.3 mg/dL 2.3-4.7 H 604) [id number] 06:19:00 Test Item Value Reference Range Interpretation Comments MAGNESIUM (BEAKER) (test code = 2.0 mg/dL 1.6-2.6 627) CREATINE KINASE (CK)2019-07-06 06:19:00 Test Item Value Reference Range Interpretation Comments CREATINE KINASE TOTAL (BEAKER) (test 225 U/L 29-200 H code = 380) COMPREHENSIVE METABOLIC [id number] 06:19:00 Test Item Value Reference Range Interpretation Comments TOTAL PROTEIN 6.3 gm/dL 6.0-8.3 (BEAKER) (test code = 770) ALBUMIN (BEAKER) 3.3 g/dL 3.5-5.0 L (test code = 1145) ALKALINE PHOSPHATASE 71 U/L 40-150 (BEAKER) (test code = 346) BILIRUBIN TOTAL 0.5 mg/dL 0.2-1.2 (BEAKER) (test code = 377) SODIUM (BEAKER) (test 146 meq/L 136-145 H code = 381) POTASSIUM (BEAKER) 3.5 meq/L 3.5-5.1 (test code = 379) CHLORIDE (BEAKER) 121 meq/L 98-107 H (test code = 382) CO2 (BEAKER) (test 11 meq/L 22-29 L code = 355) BLOOD UREA NITROGEN 56 mg/dL 7-21 H (BEAKER) (test code = 354) CREATININE (BEAKER) 5.47 mg/dL 0.57-1.25 H (test code = 358) GLUCOSE RANDOM 106 mg/dL 70-105 H (BEAKER) (test code = 652) CALCIUM (BEAKER) 7.9 mg/dL 8.4-10.2 L (test code = 697) AST (SGOT) (BEAKER) 23 U/L 5-34 (test code = 353) ALT (SGPT) (BEAKER) 55 U/L 6-55 (test code = 347) EGFR (BEAKER) (test INSUFFIC IENT CLINICAL code = 1092) DATA TO CALCULA TE ESTIMATED GFR. TROPONIN [id number] 06:15:00 Test Item Value Reference Range Interpretation Comments TROPONIN I (BEAKER) (test code = 0.18 ng/mL 0.00-0.03 H 397) Troponin I (TnI) levels must be interpreted in the context of the presenting symptoms and the clinical findings. Elevated TnI levels indicate myocardial damage, but are not specific for ischemic heart disease. Elevated TnI levels are seen in patients with other cardiac conditions (including myocarditis and congestive heart failure), and slight TnI elevations occur in patients with other conditions, including sepsis, renal failure, acidosis, acute neurological disease, and persistent tachyarrhythmia.CBC W/PLT COUNT & AUTO DIFFERENTIAL 2019-07-06 05:59:00 Test Item Value Reference Range Interpretation Comments WHITE BLOOD CELL COUNT (BEAKER) 15.1 K/ L 3.5-10.5 H (test code = 775) RED BLOOD CELL COUNT (BEAKER) 4.00 M/ L 4.63-6.08 L (test code = 761) HEMOGLOBIN (BEAKER) (test code = 12.7 GM/DL 13.7-17.5 L 410) HEMATOCRIT (BEAKER) (test code = 39.3 % 40.1-51.0 L 411) MEAN CORPUSCULAR VOLUME (BEAKER) 98.3 fL 79.0-92.2 H (test code = 753) MEAN CORPUSCULAR HEMOGLOBIN 31.8 pg 25.7-32.2 (BEAKER) (test code = 751) MEAN CORPUSCULAR HEMOGLOBIN CONC 32.3 GM/DL 32.3-36.5 (BEAKER) (test code = 752) RED CELL DISTRIBUTION WIDTH 14.6 % 11.6-14.4 H (BEAKER) (test code = 412) PLATELET COUNT (BEAKER) (test 122 K/CU MM 150-450 L code = 756) MEAN PLATELET VOLUME (BEAKER) 12.5 fL 9.4-12.4 H (test code = 754) NUCLEATED RED BLOOD CELLS 0 /100 WBC 0-0 (BEAKER) (test code = 413) NEUTROPHILS RELATIVE PERCENT 85 % (BEAKER) (test code = 429) LYMPHOCYTES RELATIVE PERCENT 10 % (BEAKER) (test code = 430) MONOCYTES RELATIVE PERCENT 6 % (BEAKER) (test code = 431) EOSINOPHILS RELATIVE PERCENT 0 % (BEAKER) (test code = 432) BASOPHILS RELATIVE PERCENT 0 % (BEAKER) (test code = 437) NEUTROPHILS ABSOLUTE COUNT 12.73 K/ L 1.78-5.38 H (BEAKER) (test code = 670) LYMPHOCYTES ABSOLUTE COUNT 1.44 K/ L 1.32-3.57 (BEAKER) (test code = 414) MONOCYTES ABSOLUTE COUNT (BEAKER) 0.84 K/ L 0.30-0.82 H (test code = 415) EOSINOPHILS ABSOLUTE COUNT 0.00 K/ L 0.04-0.54 L (BEAKER) (test code = 416) BASOPHILS ABSOLUTE COUNT (BEAKER) 0.02 K/ L 0.01-0.08 (test code = 417) IMMATURE GRANULOCYTES-RELATIVE 0 % 0-1 PERCENT (BEAKER) (test code = 2801) LACTIC ACID, [id number] 05:51:00 Test Item Value Reference Range Interpretation Comments LACTATE BLOOD VENOUS (2) (BEAKER) 0.9 mmol/L 0.5-2.2 (test code = 2872)
[2022-03-29] MEDS ORDERED: FENTANYL CITR 100 MCG/2 ML ONE (23:07)
[2022-03-29 23:13] LABS: Urine Blood 1+ (Negative); Urine Glucose Negative (Negative); Urine Protein 2+ (Negative); Urine Specific Gravity >=1.030 (1.005-1.030)
[2022-03-29 23:19] LABS: Absolute Lymphocytes (CBC) 1.5 K/uL (0.7-4.9); Hematocrit 38.4 % (39.6-49.0); Lymphocytes % 11.7 % (15.3-44.8); MPV 9.7 fL (7.6-11.3); RBC Red Blood Cell Count 4.15 M/uL (4.33-5.43)
[2022-03-29] MEDS ORDERED: NA CHLORIDE 0.9% 50 ML ONE (23:23)
[2022-03-29] MEDS ORDERED: CEFTRIAXONE 1000 MG/VIAL ONE (23:23)
[2022-03-29 23:38] LABS: Urine Bacteria <20 /HPF (NONE SEEN); Urine RBC <5 /HPF (NONE SEEN)
[2022-03-30 00:05] LABS: Albumin 2.8 g/dL (3.4-5.0); Bilirubin Total 0.7 mg/dL (0.2-1.0); Potassium 4.1 mmol/L (3.5-5.1); Protein, Total 7.3 g/dL (6.4-8.2)
--- NOTE | 2022-03-30 02:13 | ER ---
Nurse's Notes [facility] Name: Timmy Clark Age: 81 yrs Sex: Male : 1940 Arrival Date: 03/29/2022 Time: 21:46 Bed 16 Private MD: Diagnosis: UTI/ Urinary tract infection, site not specified Presentation: 03/29 21:56 Chief complaint: Patient states: I have a pain in the left side of my lower belly that kd3 goes down into my testicle. the pain started on Tuesday and the swelling started on Tuesday. Coronavirus screen: Vaccine status: Patient reports receiving the 2nd dose of the covid vaccine. Ebola Screen: No symptoms or risks identified at this time. Initial Sepsis Screen: Does the patient meet any 2 criteria? No. Patient's initial sepsis screen is negative. Does the patient have a suspected source of infection? No. Patient's initial sepsis screen is negative. Risk Assessment: Do you want to hurt yourself or someone else? Patient reports no desire to harm self or others. Onset of symptoms was March 29, 2022. 21:56 Method Of Arrival: Ambulatory kd3 21:56 Acuity: RAUL 3 kd3 Triage Assessment: 21:58 General: Appears uncomfortable, Behavior is calm, cooperative. Pain: Complains of pain kd3 in left testicular pain. Historical: - Allergies: 23:36 No Known Allergies; ke1 - Home Meds: 21:58 aspirin 81 mg Oral chew 1 tab once daily [Active]; atorvastatin 80 mg Oral tab 1 tab kd3 once daily [Active]; carvedilol 6.25 mg Oral tab 1 tab 2 times per day [Active]; lisinopril 10 mg Oral tab 1 tab once daily [Active]; - PMHx: 21:58 Hyperlipidemia; Hypertension; kd3 - Immunization history:: Adult Immunizations up to date. - Social history:: Smoking status: unknown. Screenin:59 Abuse screen: Denies threats or abuse. Denies injuries from another. Nutritional kd3 screening: No deficits noted. Tuberculosis screening: No symptoms or risk factors identified. Fall Risk None identified. Assessment: 03/30 01:39 Reassessment: Patient appears in no apparent distress at this time. Patient is alert, ke1 oriented x 3, equal unlabored respirations, skin warm/dry/pink. Patient states symptoms have improved. Vital Signs: 03/29 21:56 BP 103 / 62; Pulse 65; Resp 18; Temp 98.1; Pulse Ox 98% on R/A; Weight 83.01 kg; Height kd3 5 ft. 2 in. (157.48 cm); Pain 10/10; 03/30 03:02 BP 102 / 58; Pulse 74; Resp 16; Temp 98.3(O); Pulse Ox 96% on R/A; Pain 0/10; ke1 03/29 21:56 Body Mass Index 33.47 (83.01 kg, 157.48 cm) kd3 ED Course: 03/29 21:46 Patient arrived in ED. ja2 21:49 Fritz Taylor PA is PHCP. cp 21:49 Kishan Salazar MD is Attending Physician. cp 21:55 Jaz Soliz RN is Primary Nurse. ke1 21:58 Triage completed. kd3 21:58 Arm band placed on right wrist. kd3 21:59 Patient has correct armband on for positive identification. kd3 22:47 US Scrotum Testicles In Process Unspecified. EDMS 22:56 Inserted saline lock: 22 gauge in right forearm, using aseptic technique. ke1 03/30 00:04 PHCP role handed off by Fritz Taylor PA cp 00:04 Bing Cerda FNP-C is PHCP. cp 00:27 CT Stone Protocol In Process Unspecified. EDMS 00:49 Jaz Soliz, RONALD is Primary Nurse. ke1 03:03 No provider procedures requiring assistance completed. IV discontinued. ke1 Administered Medications: 03/29 23:13 Drug: fentaNYL (PF) 25 mcg Route: IVP; Site: right forearm; ke1 23:40 Follow up: Response: Marked relief of symptoms ke1 23:20 Drug: Rocephin - (cefTRIAXone) 1 grams Route: IVPB; Infused Over: 30 mins; Site: right ke forearm; 23:50 Follow up: IV Status: Completed infusion ke1 Medication: 03/30 03:03 VIS not applicable for this client. ke1 Outcome: 02:12 Discharge ordered by . [facility] 03:03 Discharged to home ambulatory. ke1 03:03 Condition: good 03:03 Discharge instructions given to patient. 03:03 Patient left the ED. ke1 Signatures: Dispatcher [employer] EDMS Bing Cerda, JEAN-PIERRE HIDE CLEANER-Fritz Conner PA PA cp Alexander, Jessica ja2 Doucette, Kyli, RN RN kd3 Jaz Soliz RN RN ke1
--- NOTE | 2022-03-30 02:13 | EDPHYS ---
Physician Documentation [facility] Name: Timmy Clark Age: 81 yrs Sex: Male : 1940 Arrival Date: 03/29/2022 Time: 21:46 Bed 16 Private MD: ED Physician Kishan Salazar HPI: 03/29 22:10 This 81 yrs old Male presents to ER via Ambulatory with complaints of cp Testicular Swelling. 22:10 The patient presents with swelling, that is moderate, of the left testicle, tenderness, cp that is moderate, of the left testicle. Onset: The symptoms/episode began/occurred 1 month(s) ago, and became worse 3 day(s) ago. Associated signs and symptoms: Pertinent positives: abdominal pain, Pertinent negatives: diarrhea, dysuria, fever, hematuria, vomiting. Severity of symptoms: in the emergency department the symptoms are unchanged. The patient has been recently seen by a physician: earlier today, with similar presenting complaints, given antibiotics. Historical: - Allergies: 23:36 No Known Allergies; ke1 - Home Meds: 21:58 aspirin 81 mg Oral chew 1 tab once daily [Active]; atorvastatin 80 mg Oral tab 1 tab kd3 once daily [Active]; carvedilol 6.25 mg Oral tab 1 tab 2 times per day [Active]; lisinopril 10 mg Oral tab 1 tab once daily [Active]; - PMHx: 21:58 Hyperlipidemia; Hypertension; kd3 - Immunization history:: Adult Immunizations up to date. - Social history:: Smoking status: unknown. ROS: 22:15 Eyes: Negative for injury, pain, redness, and discharge. cp 22:15 Constitutional: Negative for body aches, chills, fever, poor PO intake. 22:15 Cardiovascular: Negative for chest pain, palpitations. 22:15 Respiratory: Negative for cough, shortness of breath, wheezing. 22:15 Abdomen/GI: Positive for abdominal pain, of the left lower quadrant, Negative for vomiting, diarrhea, constipation. 22:15 : Positive for testicular pain of the left testicle. Exam: 22:20 Constitutional: The patient appears in no acute distress, alert, awake, non-toxic, well cp developed, well nourished, obese. 22:20 Head/Face: Normocephalic, atraumatic. cp 22:20 Eyes: Periorbital structures: appear normal, Conjunctiva: normal, no exudate, no injection, Sclera: no appreciated abnormality, Lids and lashes: appear normal, bilaterally. 22:20 ENT: External ear(s): are unremarkable, Nose: is normal, Mouth: Lips: moist, Oral mucosa: pink and intact, moist, Posterior pharynx: Airway: no evidence of obstruction, patent. 22:20 Chest/axilla: Inspection: normal. 22:20 Cardiovascular: Rate: normal, Rhythm: regular. 22:20 Respiratory: the patient does not display signs of respiratory distress, Respirations: normal, no use of accessory muscles, no retractions, labored breathing, is not present, Breath sounds: are clear throughout, no decreased breath sounds, no stridor, no wheezing. 22:20 Abdomen/GI: Inspection: obese Bowel sounds: active, all quadrants, Palpation: soft, in all quadrants, moderate abdominal tenderness, in the left lower abdomen and left adnexa, rebound tenderness, is not appreciated, voluntary guarding, is elicited in the left lower quadrant. 22:20 Back: pain, is absent, ROM is normal. 22:20 Skin: cellulitis, is not appreciated, no rash present. 22:20 Neuro: Orientation: to person, place \T\ time. Mentation: is normal, Motor: moves all fours, strength is normal, Sensation: is normal, Gait: is steady, at a normal pace, without difficulty. 22:22 : Male external genitalia: swelling, of the left testicle is noted, that is moderate, cp tenderness, of the left testicle is noted, that is moderate. Vital Signs: 21:56 BP 103 / 62; Pulse 65; Resp 18; Temp 98.1; Pulse Ox 98% on R/A; Weight 83.01 kg; Height kd3 5 ft. 2 in. (157.48 cm); Pain 10/10; 03/30 03:02 BP 102 / 58; Pulse 74; Resp 16; Temp 98.3(O); Pulse Ox 96% on R/A; Pain 0/10; ke1 03/29 21:56 Body Mass Index 33.47 (83.01 kg, 157.48 cm) kd3 MDM: 03/29 21:56 Patient medically screened. cp 23:00 Differential diagnosis: UTI, prostatitis, urethritis, epididymitis. 03/30 02:07 Data reviewed: vital signs, nurses notes. Data interpreted: Pulse oximetry: on room air kb is 98 %. Interpretation: normal. Counseling: I had a detailed discussion with the patient and/or guardian regarding: the historical points, exam findings, and any diagnostic results supporting the discharge/admit diagnosis, lab results, radiology results, the need for outpatient follow up, a urologist, to return to the emergency department if symptoms worsen or persist or if there are any questions or concerns that arise at home. 02:12 ED course: Pt will continue previously prescribed antibiotics and follow up with [facility]. 03/29 22:05 Order name: CBC with Diff; Complete Time: 23:36 03/29 23:36 Interpretation: Normal except: WBC 13.0; RBC 4.15; HGB 12.9; HCT 38.4; DANNY% 79.3; LYM% cp 11.7; NEUT A 10.3. 03/29 22:05 Order name: CMP; Complete Time: 00:06 03/30 00:08 Interpretation: Normal except: CL 114; BUN 37; CRE 2.38; GFR 27; ALB 2.8; GLOB 4.5; A/G cp 0.6. 03/29 22:05 Order name: Lipase; Complete Time: 00:06 03/29 22:05 Order name: Urine Microscopic Only; Complete Time: 23:59 03/29 23:59 Interpretation: Reviewed. 03/29 23:13 Order name: Urine Dipstick-Ancillary; Complete Time: 23:36 [facility] 03/29 23:43 Order name: Urine Culture [facility] 03/29 22:05 Order name: US Scrotum Testicles 03/29 22:05 Order name: IV Saline Lock; Complete Time: 22:56 03/29 22:05 Order name: Labs collected and sent; Complete Time: 22:56 03/30 00:08 Order name: CT Stone Protocol 03/29 22:05 Order name: Urine Dipstick-Ancillary (obtain specimen); Complete Time: 23:13 cp Administered Medications: 03/29 23:13 Drug: fentaNYL (PF) 25 mcg Route: IVP; Site: right forearm; ke1 23:40 Follow up: Response: Marked relief of symptoms ke1 23:20 Drug: Rocephin - (cefTRIAXone) 1 grams Route: IVPB; Infused Over: 30 mins; Site: right ke1 forearm; 23:50 Follow up: IV Status: Completed infusion ke1 Disposition: 03/30 19:13 Co-signature as Attending Physician, Kishan Salazar MD I agree with the assessment and kdr plan of care. Disposition Summary: 03/30/22 02:12 Discharge Ordered Location: Home kb Condition: Stable kb Diagnosis - UTI/ Urinary tract infection, site not specified kb Followup: kb - With: Emergency Department - When: As needed - Reason: Worsening of condition Followup: kb - With: Private Physician - When: 2 - 3 days - Reason: Recheck today's complaints, Continuance of care, Re-evaluation by your physician Discharge Instructions: - Discharge Summary Sheet kb - Urinary Tract Infection, Adult, [id number] kb Forms: - Medication Reconciliation Form kb - Thank You Letter kb - Antibiotic Education kb - Prescription Opioid Use kb Signatures: Dispatcher [employer] EDMS Bing Cerda FNP-C FNP-Kishan Burks MD MD kdr Fritz Taylor PA PA cp Lianne Zaragoza RN RN kd3 Jaz Soliz RN RN ke1 Corrections: (The following items were deleted from the chart) 03/29 23:40 23:36 Constitutional: Negative for body aches, chills, fever, poor PO intake, cp cp 23:41 03/28 22:15 Constitutional: Negative for body aches, chills, fever, poor PO intake, cp cp 03/29 23:41 03/28 22:15 Cardiovascular: Negative for chest pain, palpitations, cp cp 03/29 23:41 03/28 22:15 Abdomen/GI: Positive for abdominal pain, of the left lower quadrant, cp Negative for vomiting, diarrhea, constipation, cp 03/29 23:41 03/28 22:15 Eyes: Negative for injury, pain, redness, and discharge, cp cp 03/29 23:41 03/28 22:15 : Positive for testicular pain of the left testicle, cp cp 03/29 23:41 03/28 22:15 Respiratory: Negative for cough, shortness of breath, wheezing, cp cp 03/30 00:18 06/27 22:09 Abdomen ordered. EDMS EDMS 03/30 02:13 02:12 ED course: Pt will continue previously prescribed antibiotics. kb kb
[2022-03-30 03:17] VITALS: BP 102/58; TEMP 98.3; O2SAT 96
--- NOTE | 2022-03-30 15:12 | RAD REPORT ---
EXAM DESCRIPTION: US - Scrotum Testicles - 03/29/2022 11:40 pm CLINICAL HISTORY: 81 years Male left testicle swelling and pain COMPARISON: None TECHNIQUE: Real-time and Doppler sonography of the testicles was performed bilaterally. Grayscale, c olor, and spectral analysis was utilized. FINDINGS: Right testicle is normal in size measuring 4.9 x 2.0 x 3 0 m. Doppler evaluation revealed satisfactory flow. Heterogeneous increased echogenicity is seen involving the inferior right testicle . Alternatively, the findings may represent decreased echogenicity involving the superior right testi mady. Head of the epididymis on the right measured 0.8 cm. Left testicle is normal in size and echogenicity measuring 4.1 x 2.8 x 3.9 cm. Doppler evaluation rev ealed satisfactory flow. Epididymal head on the left measured 1 cm with associated subcentimeter cyst . No evidence for hydrocele or varicocele bilaterally. IMPRESSION: No evidence for testicular torsion bilaterally. No evidence for testicular mass on left. Heterogeneous increased echogenicity inferior right testicle versus decreased echogenicity superior r ight testicle. The findings may represent sequela of prior trauma or infiltrative process. Clinical c orrelation as well as 6-8 week follow-up imaging suggested. Electronically signed by: Cristina De Leon MD 03/29/2022 11:25 PM CDT Due to temporary technical issues with the PACS/Fluency reporting system, reports are being signed by the in house radiologists without. review as a courtesy to insure prompt reporting. The interpreting radiologist is fully responsible for the content of the report
--- NOTE | 2022-03-30 16:15 | RAD REPORT ---
EXAM DESCRIPTION: CT - Stone Protocol - 03/30/2022 6:27 am CLINICAL HISTORY: Left lower abdomen pain. COMPARISON: CT of the abdomen and pelvis without contrast from July 05, 2019. Ultrasound of the sc rotum from today. TECHNIQUE: Serial axial CT images were obtained from above the diaphragm through the pubic symphysis without administration of intravenous or oral contrast. All CT scans are performed using dose optimization techniques as appropriate, including automated exp osure control and/or standardized protocols, where dose is adjusted for indication for exam and body habitus. FINDINGS: Thoracic: No significant abnormality. Hepatobiliary: No obvious concerning hepatic lesion identified in the absence of intravenous contrast . The gallbladder is surgically absent. No pathologic biliary ductal dilatation. Pancreas: Unremarkable. Spleen: Unremarkable. Gastrointestinal: No evidence of bowel obstruction or perienteric inflammation. The appendix is bienvenido l. Small amount of fecal material throughout the colon. No diverticula are visualized. Adrenals: No abnormality identified in either adrenal gland. Renal: No obvious parenchymal abnormality in either kidney in the absence of intravenous contrast. No hydronephrosis or urolithiasis. Bladder/Reproductive: Small left lateral bladder diverticulum. Moderate prostatomegaly. Scrotal hydro katerin, greater evaluated on today's ultrasound. Vascular/Lymphatics: No lymphadenopathy identified by CT size criteria. Mild calcific atherosclerosis . Abdominal aorta is normal in caliber. Musculoskeletal: No concerning osseous lesion identified. Small right inguinal hernia containing only fat with no associated inflammatory changes. Moderate facet arthrosis in the lower lumbar spine. Fluid / peritoneum: No significant free fluid. No free intraperitoneal air identified. IMPRESSION: No acute abnormality identified in the abdomen or pelvis by CT. Electronically signed by: Laine Cat MD 03/30/2022 12:47 AM CDT Due to temporary technical issues with the PACS/Fluency reporting system, reports are being signed by the in house radiologists without. review as a courtesy to insure prompt reporting. The interpreting radiologist is fully responsible for the content of the report
== END 2022-03-30 03:03 | disposition home or self-care (01) ==
LOC: ER 21:40
DX: N39.0 Urinary tract infection, site not specified (principal); I10 Essential (primary) hypertension; E78.5 Hyperlipidemia, unspecified; Z79.82 Long term (current) use of aspirin
CPT/HCPCS: 87088; 85025; 87086; 36415; 83690; 80053; 76377; 74176; 76870; J3010; 81003; 81015